=== PATIENT | male | born 1960 | race Caucasian/White ===

== ENCOUNTER 2022-03-04 13:40 | Inpatient (IN) | payer BC ==
[~2022-03-04] VITALS: Ht 182.9 cm; Wt 118.0 kg
[2022-03-04 14:04] LABS: BASOPHILS # (AUTO) 0.1 X10'3 (0-0.2); BASOPHILS % (AUTO) 0.7 % (0-1); EOSINOPHILS # (AUTO) 0.1 X10'3 (0-0.9); EOSINOPHILS % (AUTO) 0.9 % (0-6); HEMATOCRIT 44.4 % (42.0-52.0); HEMOGLOBIN 14.2 g/dl (14.0-17.9); LYMPHOCYTES # (AUTO) 2.2 X10'3 (1.1-4.8); LYMPHOCYTES % (AUTO) 28.1 % (21-51); MEAN CORPUSCULAR HEMOGLOBIN 26.6 PG (27.0-31.0); MEAN PLATELET VOLUME 10.3 FL (7.4-10.4); MONOCYTES # (AUTO) 0.7 X10'3 (0-0.9); MONOCYTES % (AUTO) 9.2 % (2-12); NEUTROPHILS # (AUTO) 4.8 X10'3 (1.8-7.7); NEUTROPHILS % (AUTO) 61.1 % (42-75); PLATELET COUNT 212 X10'3 (140-440); RED BLOOD COUNT 5.34 X10'6 (4.70-6.10); RED CELL DISTRIBUTION WIDTH 13.9 % (11.5-14.5); WHITE BLOOD COUNT 7.9 X10'3 (4.5-11.0)
[2022-03-04 14:13] VITALS: BP 141/79
[2022-03-04 14:18] LABS: ALANINE AMINOTRANSFERASE 27 U/L (12-78); ALBUMIN/GLOBULIN RATIO 1.1 (1.1-1.5); ALKALINE PHOSPHATASE 121 IU/L (46-116); ANION GAP 9 (8-16); ASPARTATE AMINO TRANSFERASE 18 U/L (10-37); BILIRUBIN,TOTAL 0.4 MG/DL (0.1-1.0); BLOOD UREA NITROGEN 23 MG/DL (7-18); BUN/CREATININE RATIO 18.5 (5.4-32.0); CHLORIDE 101 MMOL/L (99-107); CREATININE 1.24 MG/DL (0.60-1.10); GLUCOSE 142 MG/DL (70-104); POTASSIUM 3.7 MMOL/L (3.5-5.1); SODIUM 137 MMOL/L (135-145); TOTAL PROTEIN 7.8 G/DL (6.4-8.2); eGFR 59 ML/MIN
[2022-03-04] MEDS ORDERED: LIDOcaine/PRILOcaine 5gm cream TP ONE (14:30)
[2022-03-04] MEDS ORDERED: diphenhydrAMINE 25mg capsule PO ONE (14:30)
[2022-03-04] MEDS ORDERED: LORazepam 0.5 MG tablet PO ONE (14:30)
[2022-03-04] MEDS ORDERED: NITR0.3T10 SL (14:47)
[2022-03-04] MEDS ORDERED: METF-438 PO (14:47)
[2022-03-04] MEDS ORDERED: NALO4SPR3 NS (14:47)
[2022-03-04] MEDS ORDERED: METO25TA6 PO (14:47)
[2022-03-04] MEDS ORDERED: LISI5TAB22 PO (14:47)
[2022-03-04] MEDS ORDERED: ATOR40TA72 PO (14:47)
[2022-03-04] MEDS ORDERED: TRAM50TA2 PO (14:47)
[2022-03-04] MEDS ORDERED: OXYC1TAB17 PO (14:47)
[2022-03-04] MEDS ORDERED: ASPI-1071 PO (14:49)
[2022-03-04] MEDS ORDERED: MELA1TAB52 PO (14:49)
[2022-03-04] MEDS ORDERED: PIOG1TAB10 PO (14:50)
[2022-03-04] MEDS ORDERED: AMLO1CAP23 PO (14:57)
[2022-03-04] MEDS ORDERED: SEMA0.25 SQ (14:57)
[2022-03-04 15:00] LABS: APTT 29 SECONDS (22-32)
[2022-03-04 15:02] LABS: CHOL/HDL RATIO 2.6 (0.00-4.99); CHOLESTEROL 133 MG/DL (0-200); HDL CHOLESTEROL 52 MG/DL (35-60); LDL CHOLESTEROL 68 MG/DL (50-100); TRIGLYCERIDES 147 MG/DL (20-135)
[2022-03-04] MEDS: normal saline 1000ml 1,000 ML IV SCH (15:48)
[2022-03-04] MEDS ORDERED: MELA5TAB12 PO (16:08)
[2022-03-04] MEDS ORDERED: midazolam 1 mg/ML 2ml injection ONE ×2 (17:04→17:34)
[2022-03-04] MEDS ORDERED: heparin 1,000unit/ml 10ml vial 10 ML ONE (17:04)
[2022-03-04] MEDS ORDERED: LIDOcaine 1% (10mg/ml) 2ml vial ONE (17:04)
[2022-03-04] MEDS ORDERED: verapamil 2.5 mg/ml inj IV ONE (17:04)
[2022-03-04] MEDS ORDERED: FENTANYL CITRATE/PF 50 MCG/1 ML VIAL ONE (17:04)
[2022-03-04] MEDS ORDERED: iohexol 350MG/ML 100ml bottle IV ONE (17:05)
[2022-03-04] MEDS ORDERED: nitroGLYCERIN-Tridil 50MG/D5W 250 ML IV ONE (17:05)
[2022-03-04] MEDS ORDERED: nitroGLYCERIN 0.4mg SUBLingual tab SL ONE (17:09)
[2022-03-04] MEDS ORDERED: nitroGLYCERIN 0.4mg SUBLingual tab SL PRN (17:10)
[2022-03-04] MEDS ORDERED: ondansetron/PF 4mg/2ml inj IV PRN (19:15)
[2022-03-04] MEDS ORDERED: HYDROcodone/acetaminophen 10/325mg tab PO PRN (19:20)
[2022-03-04] MEDS ORDERED: OXAZEpam 15mg capsule PO PRN (19:20)
[2022-03-04] MEDS ORDERED: HYDROcodone/acetaminophen 5mg/325mg tablet PO PRN (19:20)
[2022-03-04] MEDS ORDERED: traMADol 50MG tablet PO PRN (19:25)
[2022-03-04] MEDS ORDERED: oxyCODONE/APAP 10/325mg tablet PO PRN (19:25)
[2022-03-04] MEDS ORDERED: NITROGLYCERIN SL PRN (19:25)
[2022-03-04] MEDS ORDERED: NALOXONE HCL 4 MG NS PRN (19:25)
[2022-03-04] MEDS: metoprolol tartrate 25mg tablet PO SCH (20:02)
[2022-03-04] MEDS ORDERED: temazepam 15mg capsule PO SCH (21:00)
[2022-03-04] MEDS ORDERED: MELATONIN PO SCH (21:00)
--- NOTE | 2022-03-05 00:20 | NUR ---
ASSUMED CARE OF PATIENT FROM RAY PORTILLO. RESTING COMFORTABLY NO CHANGE IN ASSESSMENT.
[2022-03-05 07:00] VITALS: BP 143/92
[2022-03-05] MEDS: normal saline 1000ml 1,000 ML IV SCH (07:27)
[2022-03-05] MEDS ORDERED: amLODIPine 5mg tablet PO SCH (08:00)
[2022-03-05] MEDS ORDERED: atorvastatin 20mg tablet PO SCH (08:00)
[2022-03-05] MEDS ORDERED: pioglitazone 15mg tablet PO SCH (08:00)
[2022-03-05] MEDS ORDERED: glimepiride 1 MG tablet PO SCH (08:00)
[2022-03-05] MEDS ORDERED: aspirin 81mg, enteric-coated 1 TAB TABLET.DR PO SCH (08:00)
[2022-03-05] MEDS ORDERED: lisinopril 5mg tablet PO SCH (08:00)
[2022-03-05 08:17] LABS: BASOPHILS # (AUTO) 0.1 X10'3 (0-0.2); EOSINOPHILS # (AUTO) 0.1 X10'3 (0-0.9); HEMOGLOBIN 13.7 g/dl (14.0-17.9); MEAN PLATELET VOLUME 10.3 FL (7.4-10.4); MONOCYTES # (AUTO) 0.8 X10'3 (0-0.9); RED BLOOD COUNT 5.07 X10'6 (4.70-6.10)
[2022-03-05 08:18] LABS: BASOPHILS % (AUTO) 0.7 % (0-1); EOSINOPHILS % (AUTO) 1.2 % (0-6); HEMATOCRIT 41.7 % (42.0-52.0); LYMPHOCYTES # (AUTO) 1.7 X10'3 (1.1-4.8); MEAN CORPUSCULAR HEMOGLOBIN 27.1 PG (27.0-31.0); MEAN CORPUSCULAR HGB CONC 32.9 g/dL (33.0-36.5); MEAN CORPUSCULAR VOLUME 82.3 FL (78-98); MONOCYTES % (AUTO) 9.6 % (2-12); NEUTROPHILS # (AUTO) 5.3 X10'3 (1.8-7.7); NEUTROPHILS % (AUTO) 66.5 % (42-75); PLATELET COUNT 178 X10'3 (140-440); RED CELL DISTRIBUTION WIDTH 13.9 % (11.5-14.5); WHITE BLOOD COUNT 7.9 X10'3 (4.5-11.0)
[2022-03-05 08:26] LABS: ALANINE AMINOTRANSFERASE 18 U/L (12-78); ALBUMIN 3.7 G/DL (3.4-5.0); ALBUMIN/GLOBULIN RATIO 1.1 (1.1-1.5); ALKALINE PHOSPHATASE 116 IU/L (46-116); ANION GAP 9 (8-16); ASPARTATE AMINO TRANSFERASE 23 U/L (10-37); BILIRUBIN,TOTAL 0.5 MG/DL (0.1-1.0); BLOOD UREA NITROGEN 23 MG/DL (7-18); CALCIUM 9.1 MG/DL (8.5-10.1); CHLORIDE 106 MMOL/L (99-107); CREATININE 1.21 MG/DL (0.60-1.10); GLUCOSE 139 MG/DL (70-104); POTASSIUM 4.3 MMOL/L (3.5-5.1); SODIUM 141 MMOL/L (135-145); TOTAL CARBON DIOXIDE 26.2 MMOL/L (24-32); TOTAL PROTEIN 7.2 G/DL (6.4-8.2); eGFR 61 ML/MIN
[2022-03-05 08:49] VITALS: BP_SYST 143
[2022-03-05] MEDS: metoprolol tartrate 25mg tablet PO SCH (08:49)
--- NOTE | 2022-03-05 09:21 | NUR ---
Assumed care of patient. Pt lying supine on hospital bed, pt alert and oriented x 4, no distress noted, call light within reach. Addendum: 03/05/22 at 921 by Mandeep Plasencia LVN Amended: Links added. Addendum: 03/05/22 at 922 by Mandeep Plasencia LVN Minimal chest discomfort reported but patient declines any intervention
[2022-03-05] MEDS ORDERED: iohexol 350MG/ML 100ml bottle IV ONE (10:15)
--- NOTE | 2022-03-05 10:20 | NUR ---
Pt left for CTA of Abdomen and Aorta.
--- NOTE | 2022-03-05 11:49 | NUR ---
Continue to monitor and tx Addendum: 03/05/22 at 1149 by Mandeep Plasencia LVN Amended: Links added.
--- NOTE | 2022-03-05 14:01 | NUR ---
All verbal and written discharge instructions provided. All questions answered. Pt clarified on Mediterranean diet. Pt mentioning wanting steak and meat products. Pt needs reinforcement on following diet. Pt will follow up with PCP within 1 week. Spouse at bedside. PIV discontinued. Pt Telebox discontinued. Pt donned clothes independently. Pt declined wheelchair to front lobby. Pt has dry dressing in place to Right wrist from [employer]. Wound care provided. Pt and spouse did not have any questions. Addendum: 03/05/22 at 1404 by Mandeep Plasencia LVN Amended: Links added.
[2022-03-06] MEDS ORDERED: metFORMIN 500mg tablet PO SCH (08:00)
== END 2022-03-05 14:02 | disposition home or self-care (01) | DRG 287 ==
LOC: ER 13:41 → PAS IN 14:22 → PCU 3S 18:39
PROVIDERS: ADMIT Internal Medicine Interventional Cardiology; ATTEND Internal Medicine Interventional Cardiology
PROC: 4A023N7 Measurement of Cardiac Sampling and Pressure, Left Heart, Percutaneous Approach (ICD-10-PCS; principal; 2022-03-04)
PROC: B2111ZZ Fluoroscopy of Multiple Coronary Arteries using Low Osmolar Contrast (ICD-10-PCS; 2022-03-04)
PROC: B2151ZZ Fluoroscopy of Left Heart using Low Osmolar Contrast (ICD-10-PCS; 2022-03-04)
PROC: B32T1ZZ Computerized Tomography (CT Scan) of Left Pulmonary Artery using Low Osmolar Contrast (ICD-10-PCS; 2022-03-05)
PROC: B3201ZZ Computerized Tomography (CT Scan) of Thoracic Aorta using Low Osmolar Contrast (ICD-10-PCS; 2022-03-05)
PROC: B32S1ZZ Computerized Tomography (CT Scan) of Right Pulmonary Artery using Low Osmolar Contrast (ICD-10-PCS; 2022-03-05)
DX: R07.89 Other chest pain (principal); I20.0 Unstable angina; E11.9 Type 2 diabetes mellitus without complications; E78.00 Pure hypercholesterolemia, unspecified; G89.29 Other chronic pain; E66.3 Overweight; I11.9 Hypertensive heart disease without heart failure; Z68.35 Body mass index [BMI] 35.0-35.9, adult; Z79.82 Long term (current) use of aspirin; Z79.84 Long term (current) use of oral hypoglycemic drugs; Z79.899 Other long term (current) drug therapy; Z87.891 Personal history of nicotine dependence
CPT/HCPCS: 36415; 71275; 80053; 80061; 82948; 83880; 84484; 85025; 85610; 85730; 93005; 93458; 99152; 99153; 99285; A4349; A6258; A6449; C1751; C1769; C1894; G0378; J1644; J2250; J3010; J3490; J7030; Q0163; Q9967